=== PATIENT | female | born 1995 | race Two or more races ===

== ENCOUNTER 2018-04-20 07:22 | Emergency (ER) | payer OTHER ==
[~2018-04-20] VITALS: Ht 162.6 cm; Wt 59.0 kg
[2018-04-20] MEDS ORDERED: SODIUM CHLORIDE 0.9% 1,000 ML IVB ONE (07:35)
[2018-04-20 08:23] LABS: Basophils # (auto) 0.1 uL; Basophils % (auto) 0.8 % (0.0-2.0); Eosinophils # (auto) 0.1 uL; Eosinophils % (auto) 1.5 % (0.0-7.0); Hematocrit 32.6 % (36.0-46.0); Hemoglobin 11.3 g/dL (12.2-16.2); Lymphocytes # (auto) 2.6 uL; Lymphocytes % (auto) 32.7 % (10.0-50.0); Mean Corpuscular Hemoglobin 31.3 pg (28.0-32.0); Mean Corpuscular Hgb Conc. 34.5 g/dL (32.0-36.0); Mean Corpuscular Volume 90.8 fL (80.0-100.0); Monocytes # (auto) 0.5 uL; Monocytes % (auto) 6.3 % (0.0-12.0); Neutrophils # (auto) 4.6 uL; Neutrophils % (auto) 58.7 % (37.0-80.0); Nucleated Red Blood Cells % 0.1 %; Platelet Count (auto) 220 10^3/uL (140-450); Red Blood Cells 3.59 10^6/uL (4.0-5.20); Red Cell Distribution Width 12.3 % (11.8-14.3); White Blood Cell 7.9 10^3/uL (4.4-10.8)
[2018-04-20 08:41] LABS: Albumin 2.9 g/dL (3.4-5.0); BUN/Creatinine Ratio 21.9; Bilirubin, Total 0.1 mg/dL (0.2-1.0); Calcium 7.8 mg/dL (8.5-10.1); Potassium 3.4 mmol/L (3.5-5.1); Total Protein 6.1 g/dL (6.4-8.2)
[2018-04-20 09:43] LABS: Urine Bacteria NONE SEEN /hpf (None Seen); Urine Blood Negative /uL (Negative); Urine Mucus FEW (None Seen); Urine Specific Gravity 1.015 (1.001-1.035); Urine WBC 3 /hpf (0 - 5)
[2018-04-20 09:53] VITALS: BP 102/66
== END 2018-04-20 10:57 | disposition home or self-care (01) ==
LOC: EDBD 07:22 → ER 07:22
DX: K52.9 Noninfective gastroenteritis and colitis, unspecified (principal); Z90.49 Acquired absence of other specified parts of digestive tract; R42 Dizziness and giddiness
CPT/HCPCS: 36415; 74176; 80053; 81001; 81025; 83735; 85025; 93005; 94761; 96360

== ENCOUNTER 2022-03-15 19:17 | Observation (INO) | payer MEDICAID ==
[2022-03-15 21:02] LABS: Urine Amorphous Crystal FEW /hpf (None Seen); Urine Bacteria MOD /hpf (None Seen); Urine Blood Negative /uL (Negative); Urine Specific Gravity 1.016 (1.001-1.035); Urine WBC 4 /hpf (0 - 5)
[2022-03-15] MEDS ORDERED: PRENCAP11 PO (21:07)
== END 2022-03-15 21:45 | disposition home or self-care (01) ==
LOC: LDRP 19:17
PROVIDERS: ADMIT Obstetrics & Gynecology; ATTEND Obstetrics & Gynecology
DX: O26.893 Other specified pregnancy related conditions, third trimester (principal); R42 Dizziness and giddiness; H53.8 Other visual disturbances; O99.891 Other specified diseases and conditions complicating pregnancy; M79.89 Other specified soft tissue disorders; Z3A.32 32 weeks gestation of pregnancy
CPT/HCPCS: 59025; 81001; G0378

== ENCOUNTER 2022-03-18 12:30 | Observation (INO) | payer MEDICAID ==
[~2022-03-18 12:30] MED LIST: PRENCAP11 PO
[2022-03-18 14:20] LABS: Urine Bacteria FEW /hpf (None Seen); Urine Blood Negative /uL (Negative); Urine WBC 1 /hpf (0 - 5)
[2022-03-18 14:23] LABS: Hemoglobin 11.2 g/dL (12.2-16.2); Mean Corpuscular Hemoglobin 32.6 pg (28.0-32.0); Mean Corpuscular Hgb Conc. 34.8 g/dL (32.0-36.0); Mean Corpuscular Volume 93.5 fL (80.0-100.0); Red Blood Cells 3.42 10^6/uL (4.0-5.20); Red Cell Distribution Width 13.4 % (11.8-14.3); White Blood Cell 9.4 10^3/uL (4.4-10.8)
[2022-03-18 14:29] LABS: Basophils % (manual) 0 (0.0-2.0); Blast Cells 0; Eosinophils % (manual) 0 (0-7); Myelocytes % 0; Promyelocytes % 0; Reactive Lymphocytes 0
[2022-03-18 14:30] LABS: INR 0.92 (0.9-1.15)
[2022-03-18 14:43] LABS: Band Neutrophils % (manual) 21; Lymphocytes % (manual) 21 (10.0-50.0); Metamyelocytes % 2; Monocytes % (manual) 6 (0-12)
[2022-03-18 15:34] LABS: Protein, Urine 22.4 mg/dL (0.0-11.9)
[2022-03-18 16:11] LABS: Albumin 2.5 g/dL (3.4-5.0); Potassium 3.5 mmol/L (3.5-5.1)
[2022-03-18 16:14] LABS: BUN/Creatinine Ratio 10.3; Bilirubin, Total 0.2 mg/dL (0.2-1.0); Total Protein 6.5 g/dL (6.4-8.2); Uric Acid 3.7 mg/dL (2.6-6.0)
== END 2022-03-18 16:47 | disposition home or self-care (01) ==
LOC: LDRP 12:30 → UNDOADMOB 12:30 → LDRP 13:40 → UNDODISOB 13:50
PROVIDERS: ADMIT Obstetrics & Gynecology; ATTEND Obstetrics & Gynecology
DX: O13.3 Gestational [pregnancy-induced] hypertension without significant proteinuria, third trimester (principal); O24.419 Gestational diabetes mellitus in pregnancy, unspecified control; O26.893 Other specified pregnancy related conditions, third trimester; R60.0 Localized edema; R42 Dizziness and giddiness; H53.8 Other visual disturbances; Z3A.32 32 weeks gestation of pregnancy
CPT/HCPCS: 36415; 59025; 76818; 80053; 81001; 81002; 82570; 82948; 82962; 84156; 84550; 85007; 85027; 85610; 85730; 94760; G0378

== ENCOUNTER 2022-03-19 07:47 | Observation (INO) | payer MEDICAID ==
[2022-03-25 11:11] LABS: Protein, Urine 28.7 mg/dL (0.0-11.9)
[2022-03-25 11:21] LABS: Protein, Urine 27.8 mg/dL (0.0-11.9)
[2022-03-25 11:50] LABS: 24 Hr. Total Protein, Urine 528.2 mg/24 Hr (<149.1)
== END 2022-03-25 12:16 | disposition home or self-care (01) ==
LOC: LDRP 03-25 09:30
PROVIDERS: ADMIT Obstetrics & Gynecology; ATTEND Obstetrics & Gynecology
DX: O24.419 Gestational diabetes mellitus in pregnancy, unspecified control (principal); O99.891 Other specified diseases and conditions complicating pregnancy; M79.89 Other specified soft tissue disorders; O26.893 Other specified pregnancy related conditions, third trimester; R33.9 Retention of urine, unspecified; Z3A.33 33 weeks gestation of pregnancy
CPT/HCPCS: 59025; 76818; 81002; 82570; 82948; 82962; 84156; 94760; G0378

== ENCOUNTER 2022-03-22 04:19 | Observation (INO) | payer MEDICAID ==
[~2022-03-22] VITALS: Ht 157.5 cm; Wt 73.9 kg
== END 2022-03-22 05:33 | disposition home or self-care (01) ==
LOC: LDRP 04:19
PROVIDERS: ADMIT Obstetrics & Gynecology Obstetrics; ATTEND Obstetrics & Gynecology Obstetrics
DX: O99.891 Other specified diseases and conditions complicating pregnancy (principal); M79.89 Other specified soft tissue disorders; O24.419 Gestational diabetes mellitus in pregnancy, unspecified control; O26.893 Other specified pregnancy related conditions, third trimester; R03.0 Elevated blood-pressure reading, without diagnosis of hypertension; Z3A.33 33 weeks gestation of pregnancy
CPT/HCPCS: 59025; 81002; 82962; G0378

== ENCOUNTER 2022-04-01 08:45 | Observation (INO) | payer MEDICAID | END 2022-04-01 10:17 | disposition home or self-care (01) | LOC: LDRP 08:45 | PROVIDERS: ADMIT Obstetrics & Gynecology; ATTEND Obstetrics & Gynecology | DX: O24.419 Gestational diabetes mellitus in pregnancy, unspecified control (principal); O26.893 Other specified pregnancy related conditions, third trimester; R60.0 Localized edema; Z3A.34 34 weeks gestation of pregnancy | CPT/HCPCS: 59025; 76818; 81002; 82948; 82962; 94760; G0378 ==

== ENCOUNTER 2022-04-08 08:07 | Observation (INO) | payer MEDICAID | END 2022-04-08 09:55 | disposition home or self-care (01) | LOC: LDRP 08:07 | PROVIDERS: ADMIT Obstetrics & Gynecology; ATTEND Obstetrics & Gynecology | DX: O24.419 Gestational diabetes mellitus in pregnancy, unspecified control (principal); O62.9 Abnormality of forces of labor, unspecified; Z3A.35 35 weeks gestation of pregnancy | CPT/HCPCS: 59025; 76818; 81002; 82948; 82962; 94760; G0378 ==

== ENCOUNTER 2022-04-15 00:10 | Observation (INO) | payer MEDICAID ==
[~2022-04-15] VITALS: Ht 157.5 cm; Wt 76.2 kg
[2022-04-15] MEDS ORDERED: PREN-96 PO (00:40)
[2022-04-15] MEDS ORDERED: FERR28TA2 PO (00:40)
[2022-04-15] MEDS ORDERED: MECLIZINE HCL 25 MG TAB PO ONE (01:15)
[2022-04-15] MEDS ORDERED: MECL12.514 PO (01:35)
== END 2022-04-15 01:50 | disposition home or self-care (01) ==
LOC: LDRP 00:10
PROVIDERS: ADMIT Obstetrics & Gynecology Obstetrics; ATTEND Obstetrics & Gynecology Obstetrics
DX: O26.893 Other specified pregnancy related conditions, third trimester (principal); R42 Dizziness and giddiness; R10.9 Unspecified abdominal pain; R51.9 Headache, unspecified; R11.0 Nausea; Z3A.36 36 weeks gestation of pregnancy
CPT/HCPCS: 59025; 76817; 76818; 81002; 82948; 94760; G0378; J8597

== ENCOUNTER 2022-04-30 15:45 | Observation (INO) | payer MEDICAID ==
[~2022-04-30 15:45] MED LIST changes: +FERR28TA2 PO; +MECL12.514 PO; +PREN-96 PO
== END 2022-04-30 19:50 | disposition home or self-care (01) ==
LOC: UNDOADMOB 15:45 → LDRP 15:45
PROVIDERS: ADMIT Obstetrics & Gynecology; ATTEND Obstetrics & Gynecology
DX: O24.419 Gestational diabetes mellitus in pregnancy, unspecified control (principal); O34.63 Maternal care for abnormality of vagina, third trimester; N89.8 Other specified noninflammatory disorders of vagina; Z3A.39 39 weeks gestation of pregnancy
CPT/HCPCS: 59025; 76818; 81002; 82948; 82962; G0378

== ENCOUNTER 2022-05-02 03:05 | Inpatient (IN) | payer MEDICAID ==
[~2022-05-02] VITALS: Ht 157.5 cm; Wt 73.9 kg
[~2022-05-02 03:05] MED LIST changes: -MECL12.514 PO; -PREN-96 PO
[2022-05-02] MEDS ORDERED: miSOPROStol 100 mcg TAB SL PRN (05:00)
[2022-05-02] MEDS ORDERED: PHISODERM TOP SOLN 240ML BTL TOP PRN (05:00)
[2022-05-02] MEDS ORDERED: LACTATED RINGER'S 1,000 ML IV SCH (05:00)
[2022-05-02] MEDS ORDERED: CARBOPROST TROMETHAMINE 250 MCG/1ML VIAL IM PRN (05:00)
[2022-05-02] MEDS ORDERED: miSOPROStol 100 mcg TAB PR PRN (05:00)
[2022-05-02] MEDS ORDERED: LACT. RINGERS/OXYTOCIN 20UNITS 500 ML IV ONE ×2 (05:00→05:30)
[2022-05-02] MEDS ORDERED: WITCH HAZEL-GLYCERIN PAD TOP PRN (05:00)
[2022-05-02] MEDS ORDERED: BUTORPHANOL TARTRATE 2 MG/1 ML VIAL IV PRN ×2 (05:00)
[2022-05-02] MEDS ORDERED: METHYLERGONOVINE MALEATE 0.2 MG/ML AMP IM PRN (05:00)
[2022-05-02] MEDS ORDERED: DERMOPLAST 60ML BOTTLE TOP PRN (05:00)
[2022-05-02] MEDS ORDERED: LIDOCAINE 2%HCL (LOCAL ANESTH.) INJ 10ml MDV IJ PRN (05:00)
[2022-05-02] MEDS ORDERED: PROMETHAZINE HCL 25 MG/ML 1ML IV PRN (05:00)
[2022-05-02 05:56] LABS: Basophils # (auto) 0 10 ^3/uL (0-0.2); Basophils % (auto) 0.5 % (0.0-2.0); Eosinophils # (auto) 0 10 ^3/uL (0-0.8); Eosinophils % (auto) 0.3 % (0.0-7.0); Hematocrit 35.4 % (36.0-46.0); Hemoglobin 12.1 g/dL (12.2-16.2); Lymphocytes # (auto) 2.3 10 ^3/uL (0.4-5.4); Lymphocytes % (auto) 21.4 % (10.0-50.0); Mean Corpuscular Hemoglobin 31.9 pg (28.0-32.0); Mean Corpuscular Hgb Conc. 34.2 g/dL (32.0-36.0); Mean Corpuscular Volume 93.3 fL (80.0-100.0); Monocytes # (auto) 0.8 10 ^3/uL (0-1.3); Monocytes % (auto) 7.9 % (0.0-12.0); Neutrophils # (auto) 7.4 10 ^3/uL (1.6-8.6); Neutrophils % (auto) 69.9 % (37.0-80.0); Nucleated Red Blood Cells % 0.1 %; Red Blood Cells 3.79 10^6/uL (4.0-5.20); White Blood Cell 10.6 10^3/uL (4.4-10.8)
[2022-05-02] MEDS ORDERED: ACCU-CHEK COMFORT CURVE STRIP VI SCH (06:00)
[2022-05-02 06:08] LABS: Albumin 2.6 g/dL (3.4-5.0); Calcium 9.2 mg/dL (8.5-10.1); Potassium 3.7 mmol/L (3.5-5.1)
[2022-05-02 06:10] LABS: BUN/Creatinine Ratio 13.2; Bilirubin, Total 0.2 mg/dL (0.2-1.0); Total Protein 6.7 g/dL (6.4-8.2)
[2022-05-02 06:14] LABS: INR 0.89 (0.9-1.15); Partial Thromboplastin Time 24.6 sec (23.6-33.0)
[2022-05-02] MEDS ORDERED: ONDANSETRON ODT 4 MG TAB PO PRN (07:00)
[2022-05-02 07:47] LABS: Alcohol, Urine < 3.0 mg/dL (0-10); Amphetamine Screen, Urine NEGATIVE (NEGATIVE); Barbiturate Scree,Urine NEGATIVE (NEGATIVE); Benzodiazephine Screen, Urine NEGATIVE (NEGATIVE); Cannabinoid Screen, Urine NEGATIVE (NEGATIVE); Cocaine Screen, Urine NEGATIVE (NEGATIVE); Opiate Scree,Urine NEGATIVE (NEGATIVE); Phencyclidine Screen, Urine NEGATIVE (NEGATIVE)
[2022-05-02 08:08] LABS: Urine Bacteria FEW /hpf (None Seen); Urine Blood Negative /uL (Negative); Urine Mucus FEW (None Seen); Urine Specific Gravity 1.016 (1.001-1.035); Urine WBC 1 /hpf (0 - 5)
[2022-05-02 11:00] VITALS: BP 124/75
[2022-05-02] MEDS ORDERED: IBUPROFEN 800 MG TAB PO SCH (12:00)
[2022-05-02] MEDS: ACETAMINOPHEN 325 MG TAB PO PRN (12:30)
[2022-05-02 15:00] VITALS: BP 128/80
[2022-05-02 19:00] VITALS: BP 131/75
[2022-05-02 20:30] VITALS: BP 131/75
[2022-05-02] MEDS: IBUPROFEN 800 MG TAB PO PRN (20:40)
[2022-05-02] MEDS ORDERED: DOCUSATE SOD 100 MG CAP PO SCH (22:00)
[2022-05-02 23:00] VITALS: BP 114/61
[2022-05-03] MEDS: ACETAMINOPHEN 325 MG TAB PO PRN (01:58)
[2022-05-03 02:51] VITALS: BP 139/77
[2022-05-03 06:06] LABS: RPR Non Reactive (Non Reactive)
[2022-05-03 07:00] VITALS: BP 119/77
[2022-05-03] MEDS: IBUPROFEN 800 MG TAB PO PRN (10:16)
[2022-05-03 11:00] VITALS: BP 124/79
== END 2022-05-03 12:38 | disposition home or self-care (01) | DRG 560 ==
LOC: LDRP 03:05 → UNDOADMOB 03:05 → OBSVTOIN 04:48 → INTOOBSV 04:48 → LDRP 04:57 → OBSVTOIN 04:57 → LDRP 05:33
PROVIDERS: ADMIT Obstetrics & Gynecology; ATTEND Obstetrics & Gynecology
PROC: 10E0XZZ Delivery of Products of Conception, External Approach (ICD-10-PCS; principal; 2022-05-02)
PROC: 0HQ9XZZ Repair Perineum Skin, External Approach (ICD-10-PCS; 2022-05-02)
DX: O70.0 First degree perineal laceration during delivery (principal); Z37.0 Single live birth; Z20.822 Contact with and (suspected) exposure to COVID-19; Z3A.39 39 weeks gestation of pregnancy; Z86.32 Personal history of gestational diabetes; Z90.49 Acquired absence of other specified parts of digestive tract
CPT/HCPCS: 36415; 59025; 59409; 80053; 80307; 81001; 81002; 82948; 82962; 85025; 85610; 85730; 86592; 86850; 86900; 86901; 94760; 96360; 96361; 96365; 96366; 96372; G0378; J2001; J2590

== ENCOUNTER → 2022-06-10 | Outpatient (CLI) | payer MEDICAID | END | disposition home or self-care (01) | LOC: LAB 08:50 | PROVIDERS: ATTEND Obstetrics & Gynecology | DX: O99.810 Abnormal glucose complicating pregnancy (principal) | CPT/HCPCS: 36415; 82951; 83036 ==

== ENCOUNTER → 2022-10-30 | Outpatient (CLI) | payer MEDICAID ==
[2022-10-30 10:13] LABS: Cholesterol 173 mg/dL (< 200)
[2022-10-30 10:22] LABS: HDL Cholesterol 53 mg/dL (40-59); LDL Cholesterol 112 mg/dL (< 100); Triglycerides 144 mg/dL (< 150)
== END | disposition home or self-care (01) ==
LOC: LAB 08:59
PROVIDERS: ATTEND Internal Medicine
DX: Z00.00 Encounter for general adult medical examination without abnormal findings (principal)
CPT/HCPCS: 36415; 80061; 84443

== ENCOUNTER 2022-10-31 11:40 | Day surgery (SDC) | payer MEDICAID ==
[2022-10-30 09:23] LABS: Basophils # (auto) 0.1 10 ^3/uL (0-0.2); Basophils % (auto) 0.8 % (0.0-2.0); Eosinophils # (auto) 0.2 10 ^3/uL (0-0.8); Eosinophils % (auto) 1.9 % (0.0-7.0); Hematocrit 36.3 % (36.0-46.0); Hemoglobin 12.6 g/dL (12.2-16.2); Lymphocytes # (auto) 2.8 10 ^3/uL (0.4-5.4); Lymphocytes % (auto) 32.9 % (10.0-50.0); Mean Corpuscular Hemoglobin 30.9 pg (28.0-32.0); Mean Corpuscular Hgb Conc. 34.7 g/dL (32.0-36.0); Mean Corpuscular Volume 89.1 fL (80.0-100.0); Monocytes # (auto) 0.5 10 ^3/uL (0-1.3); Monocytes % (auto) 5.6 % (0.0-12.0); Neutrophils # (auto) 4.9 10 ^3/uL (1.6-8.6); Neutrophils % (auto) 58.8 % (37.0-80.0); Nucleated Red Blood Cells % 0.1 %; Red Blood Cells 4.08 10^6/uL (4.0-5.20); Red Cell Distribution Width 12.2 % (11.8-14.3); White Blood Cell 8.4 10^3/uL (4.4-10.8)
[2022-10-30 09:46] LABS: INR 0.87 (0.9-1.15); Partial Thromboplastin Time 25.3 sec (24.6-33.4)
[2022-10-30 10:08] LABS: Albumin 3.4 g/dL (3.4-5.0); Calcium 9.1 mg/dL (8.5-10.1)
[2022-10-30 10:12] LABS: BUN/Creatinine Ratio 22.5; Bilirubin, Total 0.2 mg/dL (0.2-1.0); Total Protein 7.5 g/dL (6.4-8.2)
[~2022-10-31] VITALS: Ht 157.5 cm; Wt 65.8 kg
[2022-10-31] MEDS ORDERED: diphenhdrAMINE HCL 50 MG/1 ML VL ONE (12:22)
[2022-10-31] MEDS ORDERED: LIDOCAINE VISCOUS 2% 15ML UD ONE (12:41)
[2022-10-31] MEDS: fentaNYL CITRATE 100 MCG/2 ML VL ONE ×2 (13:18→13:21)
[2022-10-31] MEDS: MIDAZOLAM HCL 2MG/2ML 2ml VIAL (1mg/ml) ONE ×4 (13:18→13:27)
[2022-10-31 14:05] VITALS: BP 109/68
== END 2022-10-31 14:15 | disposition home or self-care (01) ==
LOC: GI 11:40
PROVIDERS: ATTEND Internal Medicine Gastroenterology
DX: R10.11 Right upper quadrant pain (principal); K29.50 Unspecified chronic gastritis without bleeding; K44.9 Diaphragmatic hernia without obstruction or gangrene; Z90.49 Acquired absence of other specified parts of digestive tract; Z20.822 Contact with and (suspected) exposure to COVID-19
CPT/HCPCS: 36415; 43239; 80053; 81025; 84702; 85025; 85610; 85730; 88305; 88342; J1200; J2250; J3010; J7030; U0003

== ENCOUNTER 2025-04-07 08:58 | Outpatient (CLI) | payer MEDICAID ==
[2025-04-07 09:52] LABS: Creatinine, Urine 88.16 mg/dL (30.0-125.0)
[2025-04-07 09:54] LABS: CRP High Sensitivity 0.95 mg/dL (<1.0)
[2025-04-07 09:55] LABS: Micro Albumin < 3.0 mg/L (<30.0)
== END 2025-04-07 17:00 | disposition home or self-care (01) ==
LOC: LAB 08:58
PROVIDERS: ATTEND Internal Medicine
DX: R73.03 Prediabetes (principal); E78.5 Hyperlipidemia, unspecified; Z00.00 Encounter for general adult medical examination without abnormal findings
CPT/HCPCS: 36415; 80061; 82043; 82570; 83036; 86141